=== PATIENT | female | born 1955 ===

== ENCOUNTER 2016-09-05 10:39 | Emergency (ER) | payer OTHER ==
[2016-09-05 10:44] VITALS: RESP 18; O2SAT 99
[2016-09-05 10:53] VITALS: BMI 24.7
[2016-09-05] MEDS ORDERED: DiphenhydrAMINE 50 mg/ml Inj IVP STA (10:57)
[2016-09-05] MEDS ORDERED: Sodium Chloride 0.9% 1,000 ML IV ONE (10:58)
[2016-09-05] MEDS ORDERED: DiphenhydrAMINE 50 mg/ml Inj ONE (10:59)
--- NOTE | 2016-09-05 11:06 | C.PDOC ---
History Of Present Illness A 61 year old female presents to the emergency room for the evaluation of an allergic reaction that started prior to arrival. Patient reports a history of being allergic to avocados. Patient had an avocado today. Patient notes generalized itching and swelling. Patient denies any shortness of breath, chest pain, fever, chills, nausea, vomiting, diarrhea, or any other complaints. Time Seen by Provider: 09/05/16 10:55 Chief Complaint (Nursing): Allergic Reaction History Per: Patient History/Exam Limitations: no limitations Onset/Duration Of Symptoms: Hrs Current Symptoms Are (Timing): Still Present Context: Food (Allergic to Avocado) Possible Cause: Food (Allergic to Avocado) Associated Symptoms: Swelling, Itching. denies: Chest Pain Home/EMS Treatment: None Severity: Mild Recent travel outside of the [place]: No Past Medical History Reviewed: Historical Data, Nursing Documentation, Vital Signs Vital Signs: Last Vital Signs Temp 98.2 F 09/05/16 12:30 Pulse 82 09/05/16 12:30 Resp 18 09/05/16 12:30 BP 150/85 09/05/16 12:30 Pulse Ox 99 09/05/16 12:35 - Medical History PMH: HTN Surgical History: Cholecystectomy - [facility] Procedures PHYSICAL THERAPY NEC (10/13/13) Family History: States: No Known Family Hx - Social History Hx Alcohol Use: No Hx Substance Use: No - Immunization History Hx Tetanus Toxoid Vaccination: No Hx Influenza Vaccination: Yes Hx Pneumococcal Vaccination: No Review Of Systems Constitutional: Positive for: Other (Generalized itching and swelling). Negative for: Fever, Chills Cardiovascular: Negative for: Chest Pain Respiratory: Negative for: Shortness of Breath Gastrointestinal: Negative for: Nausea, Vomiting, Diarrhea Physical Exam - Physical Exam Appears: Well, Non-toxic Skin: Rash (Scattered urticaria) Head: Swelling (Periorbital swelling) Eye(s): bilateral: PERRL, EOMI Oral Mucosa: Moist Tongue: Normal Appearing, No Swelling Lips: Normal Appearing, No Swelling Cardiovascular: Rhythm Regular Respiratory: Normal Breath Sounds, No Rales, No Rhonchi, No Wheezing Neurological/Psych: Oriented x3, Normal Speech ED Course And Treatment O2 Sat by Pulse Oximetry: 99 Progress Note: Patient given Pepcid, Benadryl, and SOLU-Medrol. Patient is resting comfortably, tolerating PO, has no shortness of breath, has no intra- oral swelling, and no stridor. Patient's urticaria has improved. Patient was advised to avoid potential allergens, and to follow up with physician in 1-2 days. Disposition Counseled Patient/Family Regarding: Diagnosis, Need For Followup - Disposition Disposition: HOME/ ROUTINE Disposition Time: 12:32 Condition: GOOD Additional Instructions: Continue claritin, but take twice a day for few (3) days Follow up with pmd Prescriptions: Famotidine [Pepcid] 1 tab PO BID #30 tab Prednisone 1 tab PO DAILY #4 tablet Instructions: Food Allergy (ED) Forms: Work Excuse - Clinical Impression Clinical Impression: Allergic reaction - Scribe Statement The provider has reviewed the documentation as recorded by the Scribtory Tan All medical record entries made by the Gaviibtory were at my direction and personally dictated by me. I have reviewed the chart and agree that the record accurately reflects my personal performance of the history, physical exam, medical decision making, and the department course for this patient. I have also personally directed, reviewed, and agree with the discharge instructions and disposition.
[2016-09-05 12:48] VITALS: BP 150/85; PULSE 82; TEMP 98.2
== END 2016-09-05 12:48 | disposition home or self-care (01) ==
LOC: C.ER 10:39
DX: L50.0 Allergic urticaria (principal)
CPT/HCPCS: 96361; 96374; 96375; 99284; J1200; J2930; J7040